=== PATIENT | male | born 1955 | race Caucasian/White ===

== ENCOUNTER 2019-02-18 07:58 | Emergency (ER) | payer BC ==
[~2019-02-18] VITALS: Ht 185.4 cm; Wt 96.2 kg
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
--- NOTE | 2019-02-18 08:27 | NUR ---
SEEN AND EXAMINED BY .
[2019-02-18] MEDS ORDERED: MORPHINE SULFATE INJ 4 MG/ML DISP.SYRIN ONE (08:29)
[2019-02-18] MEDS ORDERED: ONDANSETRON 4 MG TAB.RAPDIS ONE (08:29)
[2019-02-18] MEDS ORDERED: ONDANSETRON 4 MG TAB.RAPDIS SL ONE (08:30)
[2019-02-18] MEDS ORDERED: MORPHINE SULFATE INJ 2 MG/ML DISP.SYRIN IM ONE (08:30)
--- NOTE | 2019-02-18 08:31 | NUR ---
INTELLIGENCE MANAGER AT BEDSIDE FOR XRAY.
[2019-02-18] MEDS ORDERED: LORAZEPAM 1 MG TABLET PO ONE (09:30)
[2019-02-18] MEDS ORDERED: LORAZEPAM 1 MG TABLET ONE (09:31)
--- NOTE | 2019-02-18 10:32 | NUR ---
Patient discharged to home in stable condition. Written and verbal after care instructions given. Patient verbalizes understanding of instruction.
[2019-02-18 10:33] VITALS: BP 138/81
== END 2019-02-18 10:34 | disposition home or self-care (01) ==
LOC: ER 08:01
DX: M62.830 Muscle spasm of back (principal); V49.49XA Driver injured in collision with other motor vehicles in traffic accident, initial encounter; Y93.89 Activity, other specified; Y92.89 Other specified places as the place of occurrence of the external cause; Y99.8 Other external cause status
CPT/HCPCS: 72100; 96372; 99283; J2270; Q0162